=== PATIENT | female | born 1970 | race Caucasian/White ===

== ENCOUNTER 2018-02-18 13:00 | Outpatient (RCR) | payer BC | END 2018-03-03 | disposition home or self-care (01) | LOC: PT | DX: Z47.1 Aftercare following joint replacement surgery (principal); Z96.652 Presence of left artificial knee joint ==

== ENCOUNTER 2019-05-05 01:14 | Emergency (ER) | payer BC ==
[~2019-05-05] VITALS: Ht 162.6 cm; Wt 133.2 kg
[2019-05-05] MEDS ORDERED: WELLBUTRIN XL300 M1 PO (01:37)
[2019-05-05] MEDS ORDERED: ULTRAM50 M1 PO (01:38)
[2019-05-05] MEDS ORDERED: LEXAPRO 10MG10 MG PO (01:39)
[2019-05-05] MEDS ORDERED: BYSTOLIC20 MG PO (01:39)
[2019-05-05] MEDS ORDERED: LEXAPRO20 M1 PO (01:48)
[2019-05-05 01:51] LABS: EOS # 0.2 (0.04-0.40); EOS % 1.4 % (1.0-5.0); HEMATOCRIT 33.9 % (37.0-47.0); HEMOGLOBIN 10.3 g/dL (12.5-16.0); LYMPH# 1.6 (1.50-4.00); MEAN CELL VOLUME 75 fl (78-100); MEAN CORPUSCULAR HGB CONC 30 g/dL (33-37); MEAN PLATELET VOLUME 9.8 fl (7.4-10.4); MONO # 0.6 (0.20-0.80); PLATELET COUNT 466 K/mm3 (130-400); RED CELL DISTRIBUTION WIDTH 16.3 % (11.5-14.5); WHITE BLOOD COUNT 12.2 K/mm3 (4.8-10.8)
[2019-05-05 01:54] LABS: MEAN CORPUSCULAR HEMOGLOBIN 23 pg (27-31); NEU # 9.7 (1.40-6.50)
[2019-05-05] MEDS ORDERED: HCTZ 25MG25 MG PO (02:00)
[2019-05-05 02:01] LABS: ALBUMIN 3.6 g/dL (3.5-5.0)
[2019-05-05 02:02] LABS: POTASSIUM 3.9 mmol/L (3.5-5.1)
[2019-05-05] MEDS ORDERED: FLONASE ALLERG9.9 ML NS (02:02)
[2019-05-05] MEDS ORDERED: KLONOPIN 0.5MG0.5 MG PO (02:02)
[2019-05-05 02:03] LABS: CALCIUM 9.2 mg/dL (8.3-10.5)
[2019-05-05 02:04] LABS: TOTAL PROTEIN 7.4 g/dL (6.4-8.3)
[2019-05-05 02:06] LABS: TOTAL BILIRUBIN 0.6 mg/dL (0.2-1.2)
[2019-05-05 09:08] VITALS: BP 133/76
== END 2019-05-05 08:34 | disposition home or self-care (01) ==
LOC: ED 01:14
PROVIDERS: Nurse Practitioner Family
DX: T81.89XA Other complications of procedures, not elsewhere classified, initial encounter (principal); L02.211 Cutaneous abscess of abdominal wall; I10 Essential (primary) hypertension; F41.9 Anxiety disorder, unspecified; E66.9 Obesity, unspecified; Z87.19 Personal history of other diseases of the digestive system; Z90.89 Acquired absence of other organs; Z98.890 Other specified postprocedural states; Z96.652 Presence of left artificial knee joint
CPT/HCPCS: J2270; J2405; J2550; J3370; J7030; J7050; Q9967